=== PATIENT | male | born 1980 | race Two or more races ===

== ENCOUNTER 2016-12-31 13:27 | Emergency (ER) | payer OTHER ==
[2016-12-31 13:40] VITALS: BP 143/95; PULSE 103; RESP 20; TEMP 98.4; O2SAT 93
[2016-12-31] MEDS ORDERED: TDAP ADULT 0.5 ML INJ (BOOSTRIX) IM ONE (13:40)
[2016-12-31] MEDS ORDERED: LIDOCAINE 2% JELLY 5 ML TUBE TP ONE (13:40)
[2016-12-31] MEDS ORDERED: ceFAZolin 1 GM VIAL IVP ONE (14:23)
[2016-12-31] MEDS ORDERED: KETOROLAC 15 MG/1 ML SDV IVP ONE (14:24)
[2016-12-31] MEDS ORDERED: ceFAZolin 1 GM in NS 100 ML IV ONE (14:30)
--- NOTE | 2016-12-31 14:32 | UCPHY ---
H & P Time Seen by Provider: 12/31/16 13:54 Patient Type: New HPI/ROS: This patient suffered a injury from a radial saw well cutting metal to the right dorsum of his hand while at work shortly prior to arrival with severe pain to the area of injury with moderate bleeding that slowed with direct pressure. The injury occurred shortly prior to arrival. He reports increased pain and difficulty moving his hand since the injury occurred. ROS: No numbness or tingling. No other injuries. 5 point ROS is otherwise negative. Past Medical/Surgical History: Otherwise healthy Smoking Status: Never smoked Physical Exam: Physical Exam Vital signs are normal. General: No acute distress HEENT: Atraumatic. Eyes: Pupils equal and react to light. Extraocular motions are intact. Lungs: No respiratory distress. Cardiac: Brisk capillary refill is intact throughout. Pulses are 2+ and symmetric in the affected extremity. Skin: No rash or pallor. Extremities: Atraumatic normal except for right hand right hand examination reveals a 5 cm full-thickness laceration with evidence of extensor tendon injury , moderate bleeding Neuro: Alert and oriented x3 with no sensorimotor deficits. Initial differential diagnosis: Laceration with tendon injury, rule out bony injury Constitutional: Initial Vital Signs Temperature (C) 36.9 C 12/31/16 13:35 Heart Rate 103 H 12/31/16 13:35 Respiratory Rate 20 12/31/16 13:35 Blood Pressure 143/95 H 12/31/16 13:35 O2 Sat (%) 93 12/31/16 13:35 O2 Delivery Mode Room Air Allergies/Adverse Reactions: No Known Allergies Allergy (Unverified 12/31/16 13:33) Home Medications: Medication Instructions Recorded Amox Tr/K Clav (Augmentin) 500 mg PO TID #15 tab 12/31/16 [Augmentin 500/125 MG TAB (*)] Ibuprofen [Motrin (*)] 600 mg PO Q6 PRN #30 tab 12/31/16 oxyCODONE/APAP 5/325 [Percocet 1 - 2 tab PO Q4-6PRN PRN #18 tab 12/31/16 5/325 (*)] MDM/Departure - MDM Diagnostics: Hand x-ray: Very small possible dorsal chip fracture to the base of the 4th metacarpal dorsally by my interpretation confirmed by the radiologist read. Procedures: The wound is 5 cm in [id number]. The wound was copiously irrigated with saline. The wound was explored for foreign bodies and none were found. The patient has a very small injury-a couple mm or less to 1 the extensor tendons. More than 90% on the extensor tendon is still intact good function this appears to be the extensor tendon for the 3rd finger. The wound was prepped and draped in the normal sterile fashion. The wound was anesthetized using 2% lighted gel followed by 1% plain lidocaine mixed 50 50 with 0.5% Marcaine plain, 6 mL with good effect.. The edges were reapproximated using 4 0 Ethilon on a PC 3 needle-15 running sutures with good hemostasis and cosmesis. The patient tolerated the procedure well. There were no complications. Medications Given: Discontinued Medications Cefazolin Sodium (Ancef) 1 gm IVP EDNOW ONE PRN Reason: Protocol Stop: 12/31/16 14:24 Last Admin: 12/31/16 14:57 Dose: Not Given Diphtheria/Tetanus/Acell Pertussis (Boostrix) 0.5 ml IM .ONCE ONE Stop: 12/31/16 13:41 Last Admin: 12/31/16 15:00 Dose: 0.5 ml Fentanyl (Sublimaze) 50 mcg IVP EDNOW ONE Stop: 12/31/16 15:04 Last Admin: 12/31/16 15:10 Dose: 50 mcg Cefazolin Sodium 1 gm/ Sodium (Chloride) 100 mls @ 400 mls/hr IV EDNOW ONE PRN Reason: Protocol Stop: 12/31/16 14:44 Last Admin: 12/31/16 14:40 Dose: 100 mls Ketorolac Tromethamine (Toradol) 15 mg IVP EDNOW ONE Stop: 12/31/16 14:25 Last Admin: 12/31/16 14:56 Dose: 15 mg Lidocaine (Lidocaine 2% Jelly) 1 jeff TP EDNOW ONE Stop: 12/31/16 13:41 Last Admin: 12/31/16 14:56 Dose: 1 jeff Lorazepam (Ativan Injection) 0.5 mg IVP EDNOW ONE Stop: 12/31/16 15:04 Last Admin: 12/31/16 15:10 Dose: 0.5 mg Morphine Sulfate (Morphine) 5 mg IVP EDNOW ONE Stop: 12/31/16 14:25 Last Admin: 12/31/16 14:35 Dose: 5 mg ED Course/Re-evaluation: IV Ancef 1 g Toradol Morphine, Ativan with relief Counseled the patient regarding his wound. He is treated with the Ancef due to the depth of the wound with minimal bone injury. He is placed in a Velcro wrist splint in addition to the dressing. Will follow up with his work comp clinic for further evaluation. - Depart Disposition: Home, Routine, Self-Care Clinical Impression: Hand laceration Qualifiers: Encounter type: initial encounter Laterality: right Qualified Code(s): S61.411A - Laceration without foreign body of right hand, initial encounter Condition: Good Instructions: Care For Your Stitches (ED) Additional Instructions: Diagnosis: Hand laceration It appears that it is very small avulsion fracture to 1 of the bones cause due to the depth of the injury. This will cause pain for approximately 10 days but no loss of function Plan: Ibuprofen and Tylenol or Percocet for pain control no driving, alcohol or come Percocet. Wrist splint until symptoms improve likely over the next 5 to 10 days. Keep the wound clean and dry for the next 2 days. No use of the right hand during that time. Augmentin antibiotic. Follow up with work comp clinic for recheck. Stand Alone Forms: Work Excuse Prescriptions: Amox Tr/K Clav (Augmentin) [Augmentin 500/125 MG TAB (*)] 500 mg PO TID #15 tab Ibuprofen [Motrin (*)] 600 mg PO Q6 PRN #30 tab PRN Reason: Pain oxyCODONE/APAP 5/325 [Percocet 5/325 (*)] 1 - 2 tab PO Q4-6PRN PRN #18 tab PRN Reason: Pain - PQRS PQRS Measurement: NA
[2016-12-31] MEDS ORDERED: NS 100 ML BAG (MINI-BAG) IV ONE (14:35)
[2016-12-31] MEDS ORDERED: LORazepam 2 MG/ML INJ IVP ONE (15:03)
[2016-12-31] MEDS ORDERED: fentaNYL 100 MCG/2 ML INJ IVP ONE (15:03)
== END 2016-12-31 15:52 | disposition home or self-care (01) ==
LOC: CED 13:27
PROC: 0HQFXZZ Repair Right Hand Skin, External Approach (ICD-10-PCS; principal; 2016-12-31)
PROC: 3E0234Z Introduction of Serum, Toxoid and Vaccine into Muscle, Percutaneous Approach (ICD-10-PCS; principal; 2016-12-31)
DX: S61.411A Laceration without foreign body of right hand, initial encounter (principal); W31.2XXA Contact with powered woodworking and forming machines, initial encounter; Y99.0 Civilian activity done for income or pay
CPT/HCPCS: 12002-PO; 73130-PO; 96365-PO; 96375-PO; 99203-PO; G0463-PO; J0690; J1885; J3010; L3908